=== PATIENT | female | born 2005 | race Caucasian/White ===

== ENCOUNTER 2025-03-20 08:49 | Emergency (ER) | payer OTHER, SELFPAY ==
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
[2025-03-20 08:54] VITALS: BP 121/93; PULSE 81; RESP 18; TEMP 36.4; O2SAT 100
[2025-03-20 09:11] LABS: BEDSIDEPREGUCG Negative (Negative)
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
[2025-03-20 10:36] VITALS: BP 120/85; PULSE 71; RESP 18; O2SAT 100
[2025-03-20] MEDS: MORPHINE SULFATE (*CRX) 4 MG/ML INJ 2 MG IV PUSH (10:40)
[2025-03-20] MEDS: ONDANSETRON INJ 4 MG/2 ML VIAL IV PUSH (10:41)
[2025-03-20 10:54] LABS: Estimated CRCL calculation 95 ml/min; Estimated Glomerular Filt Rate > 60
[2025-03-20 11:38] VITALS: BP 102/77; PULSE 68; RESP 16; O2SAT 100
== END 2025-03-20 11:39 | disposition home or self-care (01) ==
PROVIDERS: Emergency Medicine; Emergency Provider Physician Assistant
DX: S16.1XXA Strain of muscle, fascia and tendon at neck level, initial encounter (principal); S20.212A Contusion of left front wall of thorax, initial encounter; K76.9 Liver disease, unspecified; R93.89 Abnormal findings on diagnostic imaging of other specified body structures; N94.89 Other specified conditions associated with female genital organs and menstrual cycle; V53.5XXA Driver of pick-up truck or van injured in collision with car, pick-up truck or van in traffic accident, initial encounter
CPT/HCPCS: 70450; 71046; 71260; 72125; 74177; 81025; 96374; 96375; 99284; J2270; J2405; Q9967